=== PATIENT | female | born 1965 | race Two or more races ===

== ENCOUNTER 2022-01-13 17:06 | Emergency (ER) | payer OTHER ==
[~2022-01-13] VITALS: Ht 157.5 cm; Wt 80.7 kg
[2022-01-13] MEDS ORDERED: SYNTHROID50 MCG (17:28)
== END 2022-01-13 21:16 | disposition home or self-care (01) ==
LOC: ER 17:06
DX: U07.1 COVID-19 (principal); Z88.8 Allergy status to other drugs, medicaments and biological substances

== ENCOUNTER 2022-01-15 12:06 | Outpatient (CLI) | payer OTHER ==
[~2022-01-15 12:06] MED LIST: SYNTHROID50 MCG
== END 2022-01-15 13:06 | disposition home or self-care (01) ==
LOC: ASH CLINIC 12:06
PROVIDERS: ATTEND General Practice
DX: Z23 Encounter for immunization (principal); U07.1 COVID-19

== ENCOUNTER 2022-01-20 20:54 | Emergency (ER) | payer OTHER ==
[~2022-01-20] VITALS: Ht 160 cm; Wt 81.6 kg
[2022-01-20] MEDS ORDERED: MUCINEX100 MG PO (21:10)
[2022-01-20] MEDS ORDERED: GILTUSS TR TAB1 EACH PO (21:10)
[2022-01-20] MEDS ORDERED: PROAIR RESPICL90 MCG (21:10)
== END 2022-01-21 00:26 | disposition home or self-care (01) ==
LOC: ER 20:54
DX: R05.8 Other specified cough (principal); Z20.822 Contact with and (suspected) exposure to COVID-19; Z88.6 Allergy status to analgesic agent